=== PATIENT | female | born 1960 | race Hispanic/Latino ===

== ENCOUNTER → 2020-10-20 | Outpatient (CLI) | payer MEDICARE ==
[~2020-10-20] MED LIST: CALCIUM 600 MG1 EAC4; VITAMINS; Z.0.ASPIR 8181 MG PO; Z.0.LEVOTHYROXINE88 PO; Z.0.OXYBUTYNIN CHLOR PO
== END ==
LOC: US 09:49
PROVIDERS: ATTEND Surgery
DX: N63.10 Unspecified lump in the right breast, unspecified quadrant (principal)
CPT/HCPCS: 88305